=== PATIENT | male | born 1945 | race Caucasian/White ===

== ENCOUNTER 2019-04-09 22:46 | Observation (INO) ==
[2019-04-10] MEDS ORDERED: 0.9 % Sodium Chloride 1,000 ML IVC SCH (01:00)
[2019-04-10] MEDS ORDERED: Ondansetron 4 MG/2 ML VIAL IVP PRN ×2 (04:00→11:06)
[2019-04-10 06:46] LABS: Basophils # 0.1 K/mcL (0.0-0.2); Basophils % 0.3 %; Eosinophils % 0.1 %; Hematocrit 37.8 % (37.5-50.1); Immature Granulocytes % 0.3 % (0-4); Lymphocytes # 2.5 K/mcL (0.6-4.6); Lymphocytes % 13.2 %; Mean Corpuscular HGB Conc 31.7 g/dL (31.6-35.5); Mean Corpuscular Hemoglobin 28.6 pg (28.0-33.3); Mean Corpuscular Volume 90.2 fL (83.0-100.0); Mean Platelet Volume 10.8 fL (9.4-12.4); Monocytes # 0.8 K/mcL (0.0-1.3); Monocytes % 4.2 %; Neutrophils # 15.6 K/mcL (1.6-8.9); Platelet Count 309 K/mcL (140-400); Red Blood Count 4.19 M/mcL (4.19-5.50); Red Cell Distribution Width 14.7 % (11.5-14.5); Segmented Neutrophils % 81.9 %
[2019-04-10 07:06] LABS: Alanine Aminotransferase 17 Units/L (7-52); Albumin 3.7 g/dL (3.5-5.7); Albumin/Globulin Ratio 1.7 (1.1-2.2); Alkaline Phosphatase 79 Units/L (34-104); Amylase 38 Units/L (29-103); Aspartate Amino Transferase 35 Units/L (13-39); BUN/Creatinine Ratio 18 (6-26); Bilirubin,Direct 0.3 mg/dL (0.0-0.2); Bilirubin,Indirect 0.5 mg/dL (0.0-1.2); Bilirubin,Total 0.8 mg/dL (0.3-1.0); Blood Urea Nitrogen 23 mg/dL (8-23); Calcium 8.3 mg/dL (8.6-10.3); Carbon Dioxide 25 mEq/L (23-29); Chloride 108 mEq/L (98-107); Globulin 2.2 g/dL (2.4-3.5); Glucose 136 mg/dL (70-105); Lipase 79 Units/L (11-82); Osmolality,Calculated 296 (280-300); Potassium 4.8 mEq/L (3.5-5.1); Sodium 140 mEq/L (136-145); Total Protein 5.9 g/dL (6.4-8.9); eGFR For African Americans > 60 (> 60); eGFR For Non-African Americans 55 (> 60)
--- NOTE | 2019-04-10 07:12 | Anesthesia Evaluation PreOp ---
Date of Encounter: 04/10/19 Time of Encounter: 08:42 - Past History Planned Operation: Laparoscopic Cholecystectomy Cardiac History: Hyperlipidemia Pulmonary History: Former smoker (quit 40 years ago) [employer] History: Denies Any Significant HX Other Medical History: Thyroid, Other (H/O prostate CA S/P prostatectomy) Anesthesia History: No Prior Anesthetic Complications, Past Anesthesia Alcohol Use: none Drug use: none Medications and Allergies Aspirin [Lo-Dose Aspirin EC] PO DAILY 04/10/19 [History] Oxybutynin 04/10/19 [History] Synthroid 04/10/19 [History] Allergy/AdvReac Type Severity Reaction Status Date / Time No Known Allergies Allergy Verified 04/10/19 00:30 - Meds/Allergy Pre-op Review Medications Reviewed: Yes Allergies Reviewed: Yes Beta Blockers on Current Med List: No Anesthesia Results - Labs 04/10/19 06:28 04/10/19 06:28 - Imaging EKG: report reviewed (04/09/2019 sinus rhythm, borderline LAD, abnormal R-wave progression, early transition, minimal ST depression anterolateral leads) Anesthesia Exam Vital Signs/O2 Sat/Glucose, Most Recent Temp Pulse Resp BP Pulse Ox 98.8 F 86 17 144/71 97 04/10/19 06:34 04/10/19 06:34 04/10/19 06:34 04/10/19 06:34 04/10/19 06:34 Blood Glucose* 119 Height: 5'9''/1.75m Weight: 174 lbs/79.2 kg NPO (# of Hours): 8 Pain Scale: 0 Pain Scale Used: Numeric (1 - 10) - HEENT Pupil (Motor): EOMI Mallampati: III Teeth: Normal, Missing Denture Type: Upper: Partial, Lower: Partial Oral Opening: Greater than 3 - [employer] LOC: Oriented [employer] Motor: Normal RUE, Normal LUE, Normal RLE, Normal LLE, Normal Face [employer] Sensory: Normal: RUE, LUE, RLE, LLE, Face - Cardiac Rhythm: Regular Murmur: None - Pulmonary Breath Sounds: bilateral Clear Respiratory Effort: Symmetrical Anesthesia Assess/Plan ASA Score: 2 Level of consciousness: Cooperative, Oriented, Tranquil Anesthetic Plan: General Monitoring Plan: Standard Monitors Recovery Plan: PACU
[2019-04-10] MEDS ORDERED: cefOXitin 1,000 MG, Sodium Chloride IRRigation 1,000 ML IR ONE (07:40)
[2019-04-10] MEDS ORDERED: cefOXitin 1,000 MG, 0.9 % Sodium Chloride 1,000 ML IR ONE (07:40)
--- NOTE | 2019-04-10 07:48 | Acute Care Surgery H&P ---
Date of Encounter: 04/10/19 Time of Encounter: 07:20 Assessment and Plan (1) Acute cholecystitis with chronic cholecystitis Current Visit: Yes Status: Acute The assessment and plan as outlined above was discussed with the patient and/or family members who expressed understanding and agreement. All questions were answered. The patient has acute on chronic cholecystitis. He now presents with leukocytosis and persistent right upper quadrant pain. He has been treated with one dose of preoperative antibiotic we will plan to go to the operating room for laparoscopic cholecystectomy, cholangiogram. I discussed the risks and benefits with the patient including bleeding, infection, common bile duct injury, postoperative bile leak, and open conversion. He understands and wishes to proceed. Jerrod Goel MD FACS History of Present Illness Chief complaint: Abdominal pain HPI: Mr. Burton is a 74 year old male Who had a one-day episode of abdominal pain. This started a central abdominal discomfort associated with nausea and localized to the right upper quadrant. The patient sought evaluation at the [facility] last week for central abdominal pain. An ultrasound demonstrated a thickened gallbladder wall and gallbladder sludge. A follow-up HIDA scan was ordered. The HIDA scan demonstrated a gallbladder ejection fraction of 15% with very slow filling of the gallbladder at over an hour. After the HIDA scan the patient developed acute right upper quadrant pain associated with nausea. He sought evaluation in the emergency room and now presents for treatment of acute cholecystitis. He denies shakes chills or fever. He does have nausea but no vomiting. There are no episodes of jaundice. Past Med Surg Social Fam HX - Past Medical History Medical history: arthritis, thyroid disease, other Additional medical history: H/O bladder CA Psychiatric history: no psych history - Past Surgical History Surgical History: prostatectomy Additional surgical history: left knee replacement and rotator cuff repair left shoulder - Social History Smoking Status: Never smoker Smokeless Tobacco Status: No Alcohol use: none Drug use: none Medications and Allergies Aspirin [Lo-Dose Aspirin EC] PO DAILY 04/10/19 [History] Oxybutynin 04/10/19 [History] Synthroid 04/10/19 [History] Allergy/AdvReac Type Severity Reaction Status Date / Time No Known Allergies Allergy Verified 04/10/19 00:30 Review of Systems All systems PM: The remainder of the systems were reviewed and are negative Exercise tolerance is superior. The patient has no chest pain and excellent pulmonary function despite smoking General Surgery Exam Initial Vital Signs Temp Pulse Resp BP Pulse Ox 100.0 F H 98 16 154/86 96 04/10/19 00:05 04/10/19 00:05 04/10/19 00:05 04/10/19 00:05 04/10/19 00:05 - General physical appearance well developed, well nourished, no distress - Neck no masses, no bruits, trachea midline, no lymphadectomy - Respiratory normal expansion, normal respiratory effort, clear to percussion, clear to auscultation - Cardiovascular Cardiovascular exam: Present: RRR, no murmurs/rubs/gallops - Abdomen Abdomen general surgery: Present: bowel sounds present, tender (Positive White sign) Abdominal Tenderness: Present: RUQ - Integumentary Integumentary general surgery: Present: warm and dry, no abnormal pigmentation, other (No evidence of jaundice) - Neurologic Present: CN 2-12 grossly intact, normal coordination, normal sensation - Psychiatric Psychiatric general surgery: Present: appropriate, oriented to person, oriented to place, oriented to time, speech is normal, memory intact Results - Labs 04/10/19 06:28 04/10/19 06:28 Abnormal lab results WBC 19.0 K/mcL (4.3-11.1) H 04/10/19 06:28 Hgb 12.0 g/dL (12.9-16.9) L 04/10/19 06:28 RDW 14.7 % (11.5-14.5) H 04/10/19 06:28 15.6 K/mcL (1.6-8.9) H 04/10/19 06:28 Chloride 108 mEq/L (98-107) H 04/10/19 06:28 Est GFR (Non-Af Amer) 55 (> 60) L 04/10/19 06:28 Glucose 136 mg/dL (70-105) H 04/10/19 06:28 POC Glucose 119 mg/dL (70-99) H 04/10/19 05:32 Calcium 8.3 mg/dL (8.6-10.3) L 04/10/19 06:28 0.3 mg/dL (0.0-0.2) H 04/10/19 06:28 5.9 g/dL (6.4-8.9) L 04/10/19 06:28 2.2 g/dL (2.4-3.5) L 04/10/19 06:28 Diabetes panel 04/10/19 Range/Units 06:28 Sodium 140 (136-145) mEq/L Potassium 4.8 (3.5-5.1) mEq/L Chloride 108 H (98-107) mEq/L Carbon Dioxide 25 (23-29) mEq/L BUN 23 (8-23) mg/dL Creatinine 1.27 (0.70-1.30) mg/dL Glucose 136 H (70-105) mg/dL Calcium 8.3 L (8.6-10.3) mg/dL AST 35 (13-39) Units/L ALT 17 (7-52) Units/L Alkaline Phosphatase 79 (34-104) Units/L Albumin 3.7 (3.5-5.7) g/dL Calcium panel 04/10/19 Range/Units 06:28 Calcium 8.3 L (8.6-10.3) mg/dL Albumin 3.7 (3.5-5.7) g/dL Pituitary panel 04/10/19 Range/Units 06:28 Sodium 140 (136-145) mEq/L Potassium 4.8 (3.5-5.1) mEq/L Chloride 108 H (98-107) mEq/L Carbon Dioxide 25 (23-29) mEq/L BUN 23 (8-23) mg/dL Creatinine 1.27 (0.70-1.30) mg/dL Glucose 136 H (70-105) mg/dL Calcium 8.3 L (8.6-10.3) mg/dL Adrenal panel 04/10/19 Range/Units 06:28 Sodium 140 (136-145) mEq/L Potassium 4.8 (3.5-5.1) mEq/L Chloride 108 H (98-107) mEq/L Carbon Dioxide 25 (23-29) mEq/L BUN 23 (8-23) mg/dL Creatinine 1.27 (0.70-1.30) mg/dL Glucose 136 H (70-105) mg/dL Calcium 8.3 L (8.6-10.3) mg/dL Total Bilirubin 0.8 (0.3-1.0) mg/dL AST 35 (13-39) Units/L ALT 17 (7-52) Units/L Alkaline Phosphatase 79 (34-104) Units/L Albumin 3.7 (3.5-5.7) g/dL All other labs normal. - Imaging Additional studies: Studies were unavailable to review the original films. [facility]
[2019-04-10] MEDS ORDERED: cefOXitin 2,000 MG in Water for inj. (sterile) 20 ML IVP SCH (08:00)
[2019-04-10] MEDS ORDERED: *HR* Propofol 200 MG/20 ML VIAL IVP ONE (08:14)
[2019-04-10] MEDS ORDERED: Lidocaine -MPF 2% 2 ML VIAL ONE (08:14)
[2019-04-10] MEDS ORDERED: *HR* Rocuronium Bromide 50 MG/5 ML VIAL ONE (08:14)
[2019-04-10] MEDS ORDERED: Ondansetron 4 MG/2 ML VIAL ONE (08:14)
[2019-04-10] MEDS ORDERED: *HR* FentaNYL (PF) 100 MCG/2 ML VIAL ONE (08:14)
[2019-04-10] MEDS ORDERED: Dexamethasone 4 MG/ML VIAL ONE (08:15)
[2019-04-10] MEDS ORDERED: Lidocaine -MPF 4% 5 ML AMPUL ONE (08:17)
[2019-04-10] MEDS ORDERED: *HR* HYDROmorphone (PF) 1 MG/ML SYRINGE IVP PRN (08:59)
[2019-04-10] MEDS ORDERED: Isovue-300 50 ML VIAL ONE (09:06)
[2019-04-10] MEDS ORDERED: Acetaminophen IV 1,000 MG/100 ML INFUS..BTL ONE (09:16)
[2019-04-10] MEDS ORDERED: *HR* PHENYLEPHRINE 1,000 MCG/10 ML SYRINGE IVP ONE ×2 (09:25→09:40)
--- NOTE | 2019-04-10 10:23 | Operative Note ---
Date of procedure: 04/10/19 Pre-op diagnosis: Acute cholecystitis Post-op diagnosis: other (Acute cholecystitis and full gallbladder perforation) Procedure: Laparoscopic cholecystectomy, cholangiogram Anesthesia: KINZA Surgeon: Jerrod Goel Was there an radiology practitioner assistant present: No Estimated blood loss (cc): 25 Specimen: Gallbladder and contents Condition: stable Disposition: PACU Procedure in Detail: Laparoscopic cholecystectomy and intraoperative cholangiogram Operative procedure: after informed consent and appropriate patient identification, the patient was taken to the major operating suite and placed supine position and given adequate general endotracheal anesthesia. The abdomen was prepped and draped in sterile fashion utilizing ChloraPrep standard draping techniques. Timeout was taken and the patient was identified. I made a vertical midline incision below the umbilicus and dissected down to level of fascia. I placed 2 traction stitches of 0 vicryl in the midline fascia and the abdominal cavity was entered visually. There was free bile in the abdominal cavity at time of entry A Koenig trocar was placed in the abdomen and the abdomen was insufflated to 15 mmHg pressure CO2. The entire right gutter was completely full of free bile and there was a good deal of peritoneal inflammation and hyperemia. The gallbladder was fully perforated and decompressed spontaneously. The gallbladder was visualized. I placemed an 11 port in the subxiphoid area and two 5 mm ports in the subcostal area. The gallbladder was grasped and elevated. There were acute and chronic inflammatory changes on the gallbladder these were lysed with electrocautery A variety of blunt and sharp dissection techniques were used to isolate the cystic duct and cystic artery. The cystic artery was controlled with 2 surgical clips proximally and one distally and it was divided. I placed a surgical clip on the neck the gallbladder and obtained an intraoperative cholangiogram using 10 mL of Isovue. Intraoperative cholangiogram was normal. The cholangiocatheter was removed and the cystic duct was controlled with 2 surgical clips proximally and was divided. The gallbladder was removed from the gallbladder fossae using electrocautery. The gallbladder was removed from the abdomen through the #11 port site. I replaced the #11 port and irrigated with copious amounts of antibiotic containing solution. All bile was irrigated from the pelvis and right gutter. There was no evidence of bleeding or bile leak. I placed a #10 Hakeem-Gerardo drain in this was sutured in place with silk All trochars were removed. Fascia was closed with 0 Vicryl and the skin with 2-0 and 4-0 Vicry. He tolerated the procedure well and was transferred to recovery in stable condition
--- NOTE | 2019-04-10 10:57 | Anesthesia Evaluation Post Op ---
Date of Encounter: 04/10/19 Time of Encounter: 10:56 - Vital Signs Vital Signs: Vital Signs/O2 Sat, Most Current Temp Pulse Resp BP Pulse Ox 99.4 F 81 16 151/84 98 04/10/19 10:54 04/10/19 10:54 04/10/19 10:54 04/10/19 10:54 04/10/19 10:54 - Lungs Lungs: Clear Ascult./Percussion - Airway Airway: Non-obstructed - Cardiovascular Regular Rate - Mental Status Mental Status: Alert & Oriented, Answers Appropriately - Pain Pain Scale: 0 Pain Scale used: Numeric (1 - 10) - Nausea Vomiting Nausea Vomiting: Not Present - Hydration Hydration: Ice chips, Has not voided - Discharge PostOp Status: Transfer Patient to floor
[2019-04-10] MEDS ORDERED: *HR* OxyCODONE/APAP 5/325 TABLET PO PRN (11:06)
[2019-04-10] MEDS: cefOXitin 2,000 MG in Water for inj. (sterile) 20 ML IVP SCH (15:43)
[2019-04-10] MEDS: 0.9 % Sodium Chloride 1,000 ML IVC SCH (17:34)
[2019-04-10] MEDS ORDERED: Acetaminophen 325 MG TABLET PO PRN (21:28)
[2019-04-11] MEDS: cefOXitin 2,000 MG in Water for inj. (sterile) 20 ML IVP SCH ×2 (02:15→08:22)
[2019-04-11] MEDS: 0.9 % Sodium Chloride 1,000 ML IVC SCH (05:30)
[2019-04-11 06:19] VITALS: BP 148/80
--- NOTE | 2019-04-11 07:47 | Discharge Summary ---
<Sarah Villegas - Last Filed: 04/11/19 08:35> - NOTES TO OUTPATIENT PROVIDER Notes to Outpatient Provider: Patient underwent laparoscopic cholecystectomy on 04/10/19. Medications include Cipro, Flagyl for 5 days, Percocet for pain control for 5 days, Colace. Patient is being discharged with a MITCH drain in place. Patient to follow-up with acute care surgery service in 2 weeks. Orders not resulted at time of discharge: Pending orders 04/10/19 09:56 Surgical Pathology [PTH] Routine 04/11/19 06:34 CBC [Complete Blood Count] [HEME] Routine 04/12/19 04:00 BMP [Basic Metabolic Panel] AM 0400 Date of Encounter: 04/11/19 Time of Encounter: 07:47 - Discharge Diagnosis (1) Acute cholecystitis with chronic cholecystitis Priority: Primary Status: Acute General Surgery Exam Initial Vital Signs Temp Pulse Resp BP Pulse Ox 100.0 F H 98 16 154/86 96 04/10/19 00:05 04/10/19 00:05 04/10/19 00:05 04/10/19 00:05 04/10/19 00:05 - General physical appearance well developed, well nourished, no distress - Eyes PERRL, normal ocular movement. negative: icteric - ENT normal mucosa, no congestion - Neck trachea midline, no venous distension - Respiratory normal expansion, normal respiratory effort, clear to auscultation - Cardiovascular Cardiovascular exam: Present: RRR, no murmurs/rubs/gallops. Absent: JVD - Abdomen Abdomen general surgery: Present: bowel sounds present, soft, tender. Absent: distended, guarding, rebound Abdominal Tenderness: Present: RUQ - Incision Incision: Present: clean and dry (MITCH drain in place, without 20 mL serosanguineous fluid in bulb.), intact. Absent: erythema - Integumentary Integumentary general surgery: Present: warm and dry, no abnormal pigmentation - Neurologic Present: CN 2-12 grossly intact, normal coordination, normal sensation - Musculoskeletal Present: normal gait, normal posture - Psychiatric Psychiatric general surgery: Present: appropriate, oriented to person, oriented to place, oriented to time, speech is normal, memory intact - Hospital Course Hospital course: Mr. Burton is a 74 year old male who presented with chief complaint of right upper quadrant abdominal pain from the [place]. He has a past medical history of arthritis, thyroid disease, and history of bladder cancer. [facility] which demonstrated a thickened gallbladder wall and gallbladder sludge, a follow-up HIDA scan was ordered which revealed a gallbladder ejection fraction of 15% with very slow filling of the gallbladder over an hour. After the HIDA scan the patient developed acute right upper quadrant pain with nausea and presented to the emergency department for treatment of his acute cholecystitis. The patient was afebrile on presentation with leukocytosis at 19.0. He was started on Mefoxin IV for antibiotic coverage. He underwent a laparoscopic cholecystectomy with intraoperative cholangiogram on 04/10/19. There was free bile in the abdominal cavity at the time of surgical entry, the gallbladder was fully perforated. A MITCH drain was placed. The cholangiogram revealed no evidence of a leak or retained common bile duct stone. He tolerated the procedure well. Patient tolerating diet well, passing flatus. He is given MITCH drain education. Vital signs are stable and the patient as well for discharge to home with follow-up in 2 weeks with the acute care surgical service. He will continue 5 days of ciprofloxacin and metronidazole, 5 days of Percocet for pain and Colace. - Time Spent with Patient Total time spent providing and/or coordinating discharge services: - Discharge Medications Prescriptions: New Ciprofloxacin [Cipro] 500 mg PO BID #10 tablet Docusate [Colace] 100 mg PO DAILY 15 Days #15 capsule metroNIDAZOLE [Flagyl] 500 mg PO TID 5 Days #15 tablet Oxycodone HCl/Acetaminophen [Percocet 5-325 mg Tablet] 1 each PO Q6HR 5 Days #20 tablet Continued Aspirin [Lo-Dose Aspirin EC] PO DAILY Oxybutynin Synthroid Home Medications: Aspirin [Lo-Dose Aspirin EC] PO DAILY 04/10/19 [History] Oxybutynin 04/10/19 [History] Synthroid 04/10/19 [History] Ciprofloxacin [Cipro] 500 mg PO BID #10 tablet 04/11/19 [Rx] Docusate [Colace] 100 mg PO DAILY 15 Days #15 capsule 04/11/19 [Rx] Oxycodone HCl/Acetaminophen [Percocet 5-325 mg Tablet] 1 each PO Q6HR 5 Days #20 tablet 04/11/19 [Rx] metroNIDAZOLE [Flagyl] 500 mg PO TID 5 Days #15 tablet 04/11/19 [Rx] Allergies/Adverse Reactions: Allergy/AdvReac Type Severity Reaction Status Date / Time No Known Allergies Allergy Verified 04/10/19 00:30 Date of admission: 04/09/19 23:49 Primary care physician: PCP NONE Discharging clinician: Sarah Villegas Anticipated date of discharge: 04/11/19 - Impressions ITS Impressions Cholangiogram,Operative 04/10/19 00:00 IMPRESSION: 1. No evidence of a leak or retained common bile duct stone. 2. Refer to surgical report. D/ / 04/10/2019 10:47:23 Arturo Lemons MD / dilcia Interpreting Provider: Arturo Lemons MD - Patient Status Disposition: Home, Self-Care Condition: Good Functional capacity at discharge: independent ambulation Overall status at discharge: patient is progressing back to baseline - Discharge Instructions Instructions: Cholecystitis (GEN), Hakeem-Gerardo Drain Care (GEN), Laparoscopic Cholecystectomy (DC) Follow Up With: Jerrod Goel MD [Partnered Physician] - (Web request sent,please call patient) Sarah Villegas MD [Resident] - Additional Instructions: General Surgical Discharge Instructions 1. No pushing, pulling, or lifting greater than 15 lbs for 2-4 weeks (depending upon procedure). 2. You may shower beginning today, but no tub baths, soaking, or swimming for 2 weeks. 3. You may resume driving when you are off narcotics and are safe to react in a car. 4. Take ibuprofen every 8 hours for discomfort. If this does not relieve discomfort, you may take the as needed Percocet. Take narcotics as directed. Do not take more narcotics then directed and do not share your narcotics with any other person. Do not drink alcohol while on narcotics. 5. Take stool softeners (Colace) or a water based laxative (Miralax) while taking narcotics. You may hold for loose stools. 6. Report any fevers greater than 100.5F, increase abdominal discomfort, drainage that looks like pus, increased redness or pain at the surgical site, or any vomiting. 7. Report any pain in the calves, shortness of breath, or rapid heartbeat. 8. Follow-up in the office as directed. 9. If you were prescribed antibiotics, do not stop them without talking to your provider. Daily MITCH drain care: Remove drain sponge. Shower/wash with antibacterial soap. Replace drain sponge. Cover with a dry dressing. Tape to secure. Do not let the MITCH drain dangle from the body. Secure the bulb to clothing with a safety pin or suspend from a lanyard when showering. - Diet and Activity Activity: resume usual activities as tolerated Diet: advance to your usual diet <Jerrod Goel - Last Filed: 04/11/19 11:22> Orders not resulted at time of discharge: Pending orders 04/10/19 09:56 Surgical Pathology [PTH] Routine Date of Encounter: 04/11/19 - Discharge Diagnosis (1) Acute cholecystitis with chronic cholecystitis Status: Acute General Surgery Exam Initial Vital Signs Temp Pulse Resp BP Pulse Ox 100.0 F H 98 16 154/86 96 04/10/19 00:05 04/10/19 00:05 04/10/19 00:05 04/10/19 00:05 04/10/19 00:05 - Hospital Course Hospital course: Mr. Burton is a 74 year old male - Time Spent with Patient Total time spent providing and/or coordinating discharge services: Date of admission: 04/09/19 23:49 Primary care physician: PCP NONE Labs on day of discharge: Labs from last 24 hours 04/11/19 09:05 WBC 20.1 H RBC 4.00 L Hgb 11.2 L Hct 36.6 L MCV 91.5 MCH 28.0 MCHC 30.6 L RDW 14.7 H Plt Count 303 MPV 11.2 Immature Gran % 0.5 Seg Neutrophils % 73.4 Lymphocytes % 21.9 Monocytes % 2.5 Eosinophils % 1.4 Basophils % 0.3 Neutrophils # 14.7 H Lymphocytes # 4.4 Monocytes # 0.5 Eosinophils # 0.3 Basophils # 0.1 - Impressions ITS Impressions Cholangiogram,Operative 04/10/19 00:00 IMPRESSION: 1. No evidence of a leak or retained common bile duct stone. 2. Refer to surgical report. D/ / 04/10/2019 10:47:23 Arturo Lemons MD / [facility] Interpreting Provider: Arturo Lemons MD - Attending Attestation I examined this patient and my medical decision-making was reviewed with the Resident Physician. I agree with the documented findings, disposition and treatment plan as described except to the extent set forth below. The patient is seen and evaluated on morning rounds with the acute care surgery team and the resident. He is completely pain-free. He is afebrile. I think it is reasonable to discharge him home on 5 days of antibiotic and outpatient pain control. Follow-up acute care surgery clinic. Condition much improved. Jerrod Goel MD FACS
[2019-04-11 09:29] LABS: Basophils # 0.1 K/mcL (0.0-0.2); Basophils % 0.3 %; Eosinophils # 0.3 K/mcL (0.0-0.6); Eosinophils % 1.4 %; Hematocrit 36.6 % (37.5-50.1); Hemoglobin 11.2 g/dL (12.9-16.9); Immature Granulocytes % 0.5 % (0-4); Lymphocytes # 4.4 K/mcL (0.6-4.6); Lymphocytes % 21.9 %; Mean Corpuscular HGB Conc 30.6 g/dL (31.6-35.5); Mean Corpuscular Volume 91.5 fL (83.0-100.0); Mean Platelet Volume 11.2 fL (9.4-12.4); Monocytes # 0.5 K/mcL (0.0-1.3); Monocytes % 2.5 %; Neutrophils # 14.7 K/mcL (1.6-8.9); Platelet Count 303 K/mcL (140-400); Red Cell Distribution Width 14.7 % (11.5-14.5); Segmented Neutrophils % 73.4 %; White Blood Count 20.1 K/mcL (4.3-11.1)
== END 2019-04-11 09:19 | disposition home or self-care (01) ==
LOC: 3ANU
PROVIDERS: ADMIT Surgery; ATTEND Surgery

== ENCOUNTER 2019-07-06 12:16 | Inpatient (IN) ==
[2019-07-06] MEDS ORDERED: 0.9 % Sodium Chloride 1,000 ML IVC ONE (12:42)
[2019-07-06 13:03] LABS: Basophils # 0.1 K/mcL (0.0-0.2); Basophils % 0.5 %; Eosinophils % 0.2 %; Hemoglobin 13.8 g/dL (12.9-16.9); Immature Granulocytes % 0.3 % (0-4); Lymphocytes # 3.3 K/mcL (0.6-4.6); Lymphocytes % 20.2 %; Mean Corpuscular HGB Conc 32.1 g/dL (31.6-35.5); Mean Corpuscular Hemoglobin 28.5 pg (28.0-33.3); Mean Corpuscular Volume 88.7 fL (83.0-100.0); Mean Platelet Volume 10.5 fL (9.4-12.4); Monocytes # 0.9 K/mcL (0.0-1.3); Monocytes % 5.2 %; Neutrophils # 12.1 K/mcL (1.6-8.9); Platelet Count 305 K/mcL (140-400); Red Blood Count 4.85 M/mcL (4.19-5.50); Red Cell Distribution Width 14.6 % (11.5-14.5); Segmented Neutrophils % 73.6 %; White Blood Count 16.5 K/mcL (4.3-11.1)
[2019-07-06] MEDS ORDERED: Ondansetron 4 MG/2 ML VIAL IVP ONE (13:18)
[2019-07-06] MEDS ORDERED: *HR* FentaNYL (PF) 100 MCG/2 ML VIAL IVP ONE (13:18)
[2019-07-06 13:22] LABS: Alanine Aminotransferase 15 Units/L (7-52); Albumin 4.4 g/dL (3.5-5.7); Albumin/Globulin Ratio 1.7 (1.1-2.2); Alkaline Phosphatase 81 Units/L (34-104); Aspartate Amino Transferase 17 Units/L (13-39); BUN/Creatinine Ratio 32 (6-26); Bilirubin,Direct 0.1 mg/dL (0.0-0.2); Bilirubin,Indirect 0.5 mg/dL (0.0-1.2); Bilirubin,Total 0.6 mg/dL (0.3-1.0); Blood Urea Nitrogen 28 mg/dL (8-23); Calcium 9.5 mg/dL (8.6-10.3); Carbon Dioxide 25 mEq/L (23-29); Chloride 103 mEq/L (98-107); Globulin 2.6 g/dL (2.4-3.5); Glucose 123 mg/dL (70-105); Lipase 13 Units/L (11-82); Osmolality,Calculated 289 (280-300); Potassium 4.3 mEq/L (3.5-5.1); Sodium 136 mEq/L (136-145); eGFR For African Americans > 60 (> 60); eGFR For Non-African Americans > 60 (> 60)
--- NOTE | 2019-07-06 13:34 | Emergency Department Note ---
Disposition Clinical Impression: Small bowel obstruction Disposition: Admitted As Inpatient Condition: Good Time of Disposition: 14:31 General Adult HPI - General Chief complaint: ED Abdominal Pain Stated complaint: bowel blockage Time Seen by Provider: 07/06/19 12:42 Source: patient, family Mode of arrival: ambulatory Limitations: no limitations Nursing Notes Reviewed: Yes Vital Signs Reviewed: Yes - History of Present Illness HPI Narrative: 74-year-old male with significant past medical history of prostate cancer with subsequent bladder stimulator presenting to the emergency department chief complaint of "bowel obstruction". Patient states that he had a cholecystectomy at the end of March this year and has since had intermittent abdominal pain. Had a CT of the abdomen and pelvis completed shortly after his cholecystectomy that just showed a collection of fluid but otherwise no acute abnormalities. Patient continued to have some abdominal pain CU scheduled for an outpatient CT of the abdomen and pelvis today. Starting 2 days ago he noticed his abdomen is more distended than normal and has had some nausea. He has been able to have very small movements and denies any vomiting. Denies any chest pain, shortness of breath or fevers. He went to the [facility] today to have the CT with IV and oral contrast that showed a small bowel obstruction. He was sent here for further evaluation. Pain Scale: 7 - Related Data Home Medications Medication Instructions Recorded Confirmed Aspirin [Lo-Dose Aspirin EC] 1 tab PO DAILY 04/10/19 07/06/19 Diclofenac Sodium [Voltaren] 75 mg PO BID PRN 07/06/19 07/06/19 Gemfibrozil [Lopid] 600 mg PO BIDWM 07/06/19 07/06/19 Levothyroxine [Synthroid] 100 mcg PO 0630 07/06/19 07/06/19 Oxybutynin [Ditropan] 5 mg PO BID 07/06/19 07/06/19 Allergies Allergy/AdvReac Type Severity Reaction Status Date / Time No Known Allergies Allergy Verified 04/10/19 00:30 All systems ED: reviewed and negative except as stated. Constitutional: Denies: fever Eyes: Reports: as per HPI ENT ED: Reports: as per HPI Cardiovascular: Denies: chest pain Respiratory: Denies: dyspnea Gastrointestinal: Reports: abdominal pain, nausea. Denies: vomiting Genitourinary: Reports: as per HPI Musculoskeletal: Reports: as per HPI Integumentary: Reports: as per HPI Neurological: Reports: as per HPI Psychiatric: Reports: as per HPI Endocrine: Reports: as per HPI Hematological/Lymphatic: Reports: as per HPI Allergic/Immunologic: Reports: as per HPI Past Medical History - Past Medical History Attestation: Yes The following information was validated with the patient. Medical history: Reports: arthritis, thyroid disease, other Surgical history: Reports: prostatectomy Psychiatric history: Reports: no psych history - Social History Smoking Status: Never smoker Smokeless Tobacco Status: No Alcohol use: Reports: none Drug use: Reports: none Physical Exam - General Limitations: no limitations General appearance: alert, in no apparent distress - Head Head exam: atraumatic, normocephalic, normal inspection - Eye Eye exam: Absent: scleral icterus - ENT ENT exam: mucous membranes moist - Neck Neck exam: Present: full ROM - Chest Chest inspection: Present: symmetric chest wall rise - Respiratory Respiratory exam: Present: normal lung sounds bilaterally. Absent: respiratory distress, wheezes - Cardiovascular Cardiovascular exam: Present: regular rate, normal rhythm, normal heart sounds - Abdominal Exam Abdominal exam: Present: tenderness, distention. Absent: guarding, rebound, rigidity Abdominal tenderness: Present: diffuse, mild - Extremities Exam Extremities exam: Present: full ROM - Neurological Exam Neurological exam: Present: alert, oriented X3 - Psychiatric Psychiatric exam: Present: normal affect - Skin Skin exam: Present: warm Course Course Narrative: 74-year-old male presenting with small bowel obstruction. Patient states for the past 2 days he has had worsening abdominal distention and nausea. Denies any vomiting. In the room he is alert and oriented [address] able. Triage labs completed including CBC, CMP and lipase. Impression of CT completed at [facility] was obtained and shows a distal small bowel obstruction at the level of the terminal ileum. There is a small amount of pelvic free fluid. Otherwise no new acute abnormalities. Labs show mild leukocytosis but otherwise within normal limits. Patient given Zofran and fentanyl. At this time will contact on-call surgery for further treatment and admission. Patient agrees with this plan. - Reevaluation(s) Reevaluation #1: I spoke with the surgeon on-call Dr. Hamlin who agrees to see the patient in consultation. She recommends admission to medicine for further treatment of the patient's small bowel obstruction. I spoke with Dr. Dale who agrees to acc ept the patient at this time. Patient remains alert and oriented 3 and hemodynamically stable. No vomiting. Vital Signs Temperature 97.5 F L 07/06/19 12:18 Pulse Rate 92 07/06/19 12:18 Respiratory Rate 16 07/06/19 12:18 Blood Pressure 153/91 07/06/19 12:18 O2 Sat by Pulse Oximetry 98 07/06/19 12:18 Temperature 97.5 F L 07/06/19 12:57 Pulse Rate 92 07/06/19 12:57 Respiratory Rate 16 07/06/19 12:57 Blood Pressure 153/91 07/06/19 12:57 O2 Sat by Pulse Oximetry 98 07/06/19 12:57 Oxygen Delivery Oxygen Delivery Room Air Medical Decision Making - Lab Data Result diagrams: 07/06/19 12:43 07/06/19 12:43 Lab Results 07/06/19 07/06/19 07/06/19 Range/Units 12:43 12:43 12:51 WBC 16.5 H (4.3-11.1) K/mcL RBC 4.85 (4.19-5.50) M/mcL Hgb 13.8 (12.9-16.9) g/dL Hct 43.0 (37.5-50.1) % MCV 88.7 (83.0-100.0) fL MCH 28.5 (28.0-33.3) pg MCHC 32.1 (31.6-35.5) g/dL RDW 14.6 H (11.5-14.5) % Plt Count 305 (140-400) K/mcL MPV 10.5 (9.4-12.4) fL Immature Gran % 0.3 (0-4) % Seg Neutrophils % 73.6 % Lymphocytes % 20.2 % Monocytes % 5.2 % Eosinophils % 0.2 % Basophils % 0.5 % Neutrophils # 12.1 H (1.6-8.9) K/mcL Lymphocytes # 3.3 (0.6-4.6) K/mcL Monocytes # 0.9 (0.0-1.3) K/mcL Eosinophils # 0.0 (0.0-0.6) K/mcL Basophils # 0.1 (0.0-0.2) K/mcL Sodium 136 (136-145) mEq/L Potassium 4.3 (3.5-5.1) mEq/L Chloride 103 (98-107) mEq/L Carbon Dioxide 25 (23-29) mEq/L BUN 28 H (8-23) mg/dL Creatinine 0.88 (0.70-1.30) mg/dL Est GFR ( Amer) > 60 (> 60) Est GFR (Non-Af Amer) > 60 (> 60) BUN/Creatinine Ratio 32 H (6-26) Glucose 123 H (70-105) mg/dL Calculated Osmolality 289 (280-300) Lactic Acid 0.6 (0.5-2.2) mmol/L Calcium 9.5 (8.6-10.3) mg/dL Total Bilirubin 0.6 (0.3-1.0) mg/dL Direct Bilirubin 0.1 (0.0-0.2) mg/dL Indirect Bilirubin 0.5 (0.0-1.2) mg/dL AST 17 (13-39) Units/L ALT 15 (7-52) Units/L Alkaline Phosphatase 81 (34-104) Units/L Serum Total Protein 7.0 (6.4-8.9) g/dL Albumin 4.4 (3.5-5.7) g/dL Globulin 2.6 (2.4-3.5) g/dL Albumin/Globulin Ratio 1.7 (1.1-2.2) Lipase 13 (11-82) Units/L Attestation Statement - Attestation Attestation: I examined this patient and my medical decision-making was reviewed with the Resident Physician. I agree with the documented findings, disposition and treatment plan as described except to the extent set forth below. Patient does have some generalized abdominal distention, patient has had some mild abdominal pain and examination. No vomiting. The patient was found to have small bowel obstruction and CT from outside facility. The results were obtained, the patient does appear to have small bowel traction. The case was discussed with general surgery as well as hospitalist, patient will be admitted in stable condition at this time.
[2019-07-06 14:29] LABS: Bilirubin,Urine Negative (Negative); Blood,Urine Negative (Negative); Clarity,Urine Clear (Clear); Color,Urine Yellow (Yellow); Glucose,Urine (UA) Normal (Normal); Ketones,Urine 40 mg/dL (Negative); Leukocyte Esterase,Urine Negative (Negative); Nitrite,Urine Negative (Negative); Protein,Urine Trace mg/dL (Neg-Trace); Specific Gravity,Urine > 1.030 (1.010-1.025); Urobilinogen,Urine Normal (Normal)
--- NOTE | 2019-07-06 15:16 | Internal Med History&Physical ---
<David Echevarria S - Last Filed: 07/06/19 16:46> Date of Encounter: 07/06/19 Time of Encounter: 15:16 Internal Medicine - H&P: HPI Admitted From: Home Plans for Post Hospital Care: Home History of present illness: Mr. Burton is a 74 year old male status post cholecystectomy for ruptured gallbladder on April 09, who presents today with abdominal pain and distention. Since his surgery, Mr. Burton states that he has had intermittent abdominal pain, seemingly worse with activity. He got a CT at the [facility] one month ago and showed fluid around the surgical site, and was scheduled for a follow-up CT today. Yesterday, patient passed a small bowel movement, then over the next several hours had onset of increasing pain and bloating. He reports the pain was worse with movement, is reported as a dull achy pain rated 9 out of 10 at its worst, he has not tried anything to make it better, reports it is tender to the touch and worse with movement. The CT scan with oral contrast performed today at the [facility] showed dilated and fluid-filled small bowel loops diffusely throughout the abdomen with semisolid debris in the terminal ileum. Ingested oral contrast remained in stomach one half hours after administration. The patient was called and told that he had a small bowel obstruction, and needed to go to the nearest ED. Upon arrival to the ED, the patient's pain was well-controlled with 50 g of fentanyl, and the admitting team and Gen. surgery were consulted. Patient reports distention and an "upset stomach," but denies nausea or vomiting since onset of pain. He denies passing gas, but reports he has had two small bowel movements since presentation to the ED. He also denies fevers, chills, headache, blurry vision, double vision, trouble swallowing or speaking, chest pain, shortness of breath, recent history of black stools or bloody stools, new onset numbness/tingling/weakness anywhere Patient's past medical history is significant for hypothyroidism, hyperlipidemia, prostate cancer. * He reports recent diagnosis of low iron. He reports that his primary care provider did a stool sample analysis which showed blood in the stool. The patient's last colonoscopy was well over 10 years ago, and he is supposed to call to schedule a colonoscopy in the coming days. Patient's past surgical history significant for prostatectomy, rotator cuff surgery, knee replacement, cholecystectomy as stated above. He denies any tobacco use, alcohol use, drug use Past Med Surg Social Fam HX - Past Medical History Medical history: arthritis, thyroid disease, other Additional medical history: H/O bladder CA Psychiatric history: no psych history - Past Surgical History Surgical History: prostatectomy Additional surgical history: left knee replacement and rotator cuff repair left shoulder - Social History Smoking Status: Never smoker Smokeless Tobacco Status: No Alcohol use: none Drug use: none - Family History Father Living Status: Age at : 85 Cause of : CHF Hx Family Cardiac Disorders: Yes Mother Living Status: Age at : 70 Cause of : Heart attack Internal Medicine - H&P: Meds Aspirin [Lo-Dose Aspirin EC] 1 tab PO DAILY 04/10/19 [History] Diclofenac Sodium [Voltaren] 75 mg PO BID PRN 07/06/19 [History] Gemfibrozil [Lopid] 600 mg PO BIDWM 07/06/19 [History] Levothyroxine [Synthroid] 100 mcg PO 0630 07/06/19 [History] Oxybutynin [Ditropan] 5 mg PO BID 07/06/19 [History] Allergy/AdvReac Type Severity Reaction Status Date / Time No Known Allergies Allergy Verified 04/10/19 00:30 All Systems PM: A 10-system review of systems was performed and is negative for pertinent findings except as documented above in the HPI. Review of systems: As per history of present illness - Constitutional Vitals: Temp Pulse Resp BP Pulse Ox 97.5 F L 73 16 138/96 98 07/06/19 12:57 07/06/19 14:54 07/06/19 14:54 07/06/19 14:54 07/06/19 14:54 Exam: Gen: Awake and alert, no acute distress, well-nourished, well kempt Head: Normocephalic, atraumatic Eyes: EOMI, no scleral icterus ENT: Mucous membranes moist, no oropharyngeal erythema CV: S1-S2 present, regular at a rate of approximately 70, no murmurs rubs or gallops Pulm: CTAB, not tachypneic, no respiratory distress, no increased work of breathing, EXT: Grossly intact motor strength in all 4 extremities, no lower extremity edema, no distal cyanosis or pallor Skin: Warm, dry, intacct, no rashes or lesions noted Neuro: Cranial nerves II-XII grossly intact, no focal neurologic deficits Psych: normal mood and affect, Answers questions with intact judgment, appropriate insight, and linear thought Abd: Tympanic, distended abdomen, mildly tender to palpation, no rebound or guarding. Bowel sounds faint but present-not remarkably high-pitched. No ecchymosis, discoloration, caput medusa, or other visible abnormalities *Of Note, there is a palpable, ill-defined mass near the mid-axillary line at the level of the umbilicus that is notably more tender to palpation than the rest of the abdomen Internal Med - H&P Results - Labs CBC & Chem 7: 07/06/19 12:43 07/06/19 12:43 Labs: Short CBC 07/06/19 Range/Units 12:43 WBC 16.5 H (4.3-11.1) K/mcL Hgb 13.8 (12.9-16.9) g/dL Hct 43.0 (37.5-50.1) % Plt Count 305 (140-400) K/mcL Neutrophils # 12.1 H (1.6-8.9) K/mcL BMP 07/06/19 12:43 Sodium 136 Potassium 4.3 Chloride 103 Carbon Dioxide 25 BUN 28 H Creatinine 0.88 Glucose 123 H Calcium 9.5 Liver Function 07/06/19 Range/Units 12:43 Total Bilirubin 0.6 (0.3-1.0) mg/dL Direct Bilirubin 0.1 (0.0-0.2) mg/dL AST 17 (13-39) Units/L ALT 15 (7-52) Units/L Alkaline Phosphatase 81 (34-104) Units/L Albumin 4.4 (3.5-5.7) g/dL Urine 07/06/19 Range/Units 14:15 Urine Color Yellow (Yellow) Urine Clarity Clear (Clear) Urine pH 6.0 (5.0-8.0) pH Units Ur Specific [place] > 1.030 H (1.010-1.025) Urine Protein Trace (Neg-Trace) mg/dL Urine Glucose (UA) Normal (Normal) mg/dL - Assessment and Plan (1) Abdominal pain Current Visit: Yes Status: Acute Assessment and plan: CT Abdomen and pelvis at the [facility] showed findings suggestive of small bowel obstruction Patient denies nausea or vomiting Patient reporting 2 small bowel movements in the ED today Abdomen is distended and tympanic, without significant tenderness, rebound, or guarding WBC elevated to 16.5 Ddx includes: * Small bowel obstruction * CT findings suggestive of SBO do not match the clinical presentation and history that would be expected * incomplete obstruction possible * Malignant obstruction * History revealed what sounds like a positive hemoccult test at his PCP's office * Recent Dx of "low iron" * Mass palpable in the R flank * Last colonoscopy was well over 10 years ago * Constipation/Fecal impaction * reports small-volume bowel movements recently * Odanah's syndrome * unlikely * Hypothyroidism * Pt with established hypothyroid history * Gastroparesis * unlikely Plan: - Admit to med/surg - NPO - Surgical consult - Consider repeating CT ab/pelv with oral and IV contrast - CBC and CMP, with repeat CBC and BMP QAM - Thyroid panel Qualifiers: Abdominal location: generalized Qualified Code(s): R10.84 - Generalized abdominal pain - Time Spent With Patient Total time spent is greater than 50% in coordination of care (as documented) at patient's floor/unit and/or counseling patient: <Davey Gibson - Last Filed: 07/06/19 17:31> Date of Encounter: 07/06/19 Internal Medicine - H&P: HPI History of present illness: Mr. Burton is a 74 year old male All Systems PM: A 10-system review of systems was performed and is negative for pertinent findings except as documented above in the HPI. - Constitutional Vitals: Temp Pulse Resp BP Pulse Ox 97.5 F L 74 16 166/86 98 07/06/19 15:35 07/06/19 15:35 07/06/19 15:35 07/06/19 15:35 07/06/19 15:35 Internal Med - H&P Results - Labs CBC & Chem 7: 07/06/19 12:43 07/06/19 12:43 Labs: Short CBC 07/06/19 Range/Units 12:43 WBC 16.5 H (4.3-11.1) K/mcL Hgb 13.8 (12.9-16.9) g/dL Hct 43.0 (37.5-50.1) % Plt Count 305 (140-400) K/mcL Neutrophils # 12.1 H (1.6-8.9) K/mcL BMP 07/06/19 12:43 Sodium 136 Potassium 4.3 Chloride 103 Carbon Dioxide 25 BUN 28 H Creatinine 0.88 Glucose 123 H Calcium 9.5 Liver Function 07/06/19 Range/Units 12:43 Total Bilirubin 0.6 (0.3-1.0) mg/dL Direct Bilirubin 0.1 (0.0-0.2) mg/dL AST 17 (13-39) Units/L ALT 15 (7-52) Units/L Alkaline Phosphatase 81 (34-104) Units/L Albumin 4.4 (3.5-5.7) g/dL Urine 07/06/19 Range/Units 14:15 Urine Color Yellow (Yellow) Urine Clarity Clear (Clear) Urine pH 6.0 (5.0-8.0) pH Units Ur Specific [place] > 1.030 H (1.010-1.025) Urine Protein Trace (Neg-Trace) mg/dL Urine Glucose (UA) Normal (Normal) mg/dL - Assessment and Plan (1) Abdominal pain Current Visit: Yes Status: Acute Qualifiers: Abdominal location: generalized Qualified Code(s): R10.84 - Generalized abdominal pain (2) Hypothyroid Current Visit: Yes Status: Chronic Qualifiers: Hypothyroidism type: acquired Qualified Code(s): E03.9 - Hypothyroidism, unspecified (3) Hyperlipidemia Current Visit: Yes Status: Chronic Qualifiers: Hyperlipidemia type: mixed hyperlipidemia Qualified Code(s): E78.2 - Mixed hyperlipidemia - Time Spent With Patient Total time spent is greater than 50% in coordination of care (as documented) at patient's floor/unit and/or counseling patient: - Attending Attestation I examined this patient and my medical decision-making was reviewed with the Resident Physician on 07/06/19. I agree with the documented findings, disposition and treatment plan as described except to the extent set forth below. Mr Burton is 74 y/o male with cholecystectomy in March. Had abdominal pain about a month later and had a fluid collection. Over last few days has noticed intermittent crampy abd pain. Today he had repeat CT showing what appeared to be SBO. He denies nausea or vomiting. Has occasional discomfort in lower abdomen. Also has had iron def anemia working up at [facility]. No fever or chills. Exam Alert. Comfortable. NC. Mucus membranes dry. EOMI. Heart reg. Lungs clear. Abd distended and tympanic with bowel sounds present. Fullness R lower abdomen. No rash. No edema. Moves all extremities. I/P 1. Abd pain - clinically has suggestion of SBO but no nausea or vomiting. Pain control. Surg eval Further diagnoses and plan as above.
[2019-07-06] MEDS ORDERED: Naloxone 0.4 MG/ML INJ IVP PRN (15:41)
[2019-07-06 17:26] LABS: Prothrombin Time 11.6 Seconds (9.4-12.1)
[2019-07-06 17:29] LABS: Activated Partial Thrombo Time 32.3 Seconds (26.0-36.0)
[2019-07-07 06:19] LABS: Basophils # 0.1 K/mcL (0.0-0.2); Basophils % 0.9 %; Eosinophils # 0.2 K/mcL (0.0-0.6); Eosinophils % 2.7 %; Hematocrit 39.2 % (37.5-50.1); Hemoglobin 12.4 g/dL (12.9-16.9); Immature Granulocytes % 0.2 % (0-4); Lymphocytes # 4.3 K/mcL (0.6-4.6); Mean Corpuscular HGB Conc 31.6 g/dL (31.6-35.5); Mean Corpuscular Hemoglobin 28.8 pg (28.0-33.3); Mean Platelet Volume 11.1 fL (9.4-12.4); Monocytes # 0.6 K/mcL (0.0-1.3); Monocytes % 7.4 %; Neutrophils # 3.4 K/mcL (1.6-8.9); Platelet Count 282 K/mcL (140-400); Red Blood Count 4.31 M/mcL (4.19-5.50); Red Cell Distribution Width 14.5 % (11.5-14.5); Segmented Neutrophils % 38.8 %; White Blood Count 8.6 K/mcL (4.3-11.1)
[2019-07-07 06:37] LABS: Alanine Aminotransferase 11 Units/L (7-52); Albumin 3.8 g/dL (3.5-5.7); Albumin/Globulin Ratio 1.8 (1.1-2.2); Alkaline Phosphatase 78 Units/L (34-104); Aspartate Amino Transferase 15 Units/L (13-39); BUN/Creatinine Ratio 25 (6-26); Bilirubin,Total 0.7 mg/dL (0.3-1.0); Blood Urea Nitrogen 21 mg/dL (8-23); Calcium 8.5 mg/dL (8.6-10.3); Carbon Dioxide 25 mEq/L (23-29); Chloride 107 mEq/L (98-107); Globulin 2.1 g/dL (2.4-3.5); Glucose 95 mg/dL (70-105); Osmolality,Calculated 287 (280-300); Potassium 4.2 mEq/L (3.5-5.1); Sodium 137 mEq/L (136-145); Total Protein 5.9 g/dL (6.4-8.9); eGFR For African Americans > 60 (> 60); eGFR For Non-African Americans > 60 (> 60)
--- NOTE | 2019-07-07 06:50 | AcuteCare Surgery Consult Note ---
Date of Encounter: 07/07/19 Time of Encounter: 02:00 Assessment and Plan (1) Small bowel obstruction Current Visit: Yes Status: Acute Resolved. Advance diet. DC to home per primary service. F/U prn History of Present Illness Consult date: 07/07/19 Reason for consult: abdominal pain Requesting physician: Vy Rose History of present illness: This 74 y/omale pt presents to [facility] ED c/o severe abdominal pain. Pt reports pa in is predominantly in infraumbilical area. Pain radiates to BLQ. However, pt also c/o pain in that was in epigastric area . Pt reports pain has been present wince after hi gb removal. He states that the chronic, intermittent low grade pain worsened to the point of intolerence today. The pain became constant and severe. However, he is pain free now. Pt denies nausea and vomiting. Pt denies hematemesis or coffee ground emesis. Pt reports flatus and BM. Pt denies hematochezia or melena. Reports normal appetite. Denies fever. Past Med Surg Social Fam HX - Past Medical History Medical history: arthritis, thyroid disease, other Additional medical history: H/O prostate cancer - 16 years ago Psychiatric history: no psych history - Past Surgical History Surgical History: cholecystectomy Additional surgical history: left knee replacement and rotator cuff repair left shoulder - Social History Smoking Status: Never smoker Smokeless Tobacco Status: No Alcohol use: none Drug use: none - Family History Father Living Status: Age at : 85 Cause of : CHF Hx Family Cardiac Disorders: Yes Mother Living Status: Age at : 70 Cause of : Heart attack Medications and Allergies Aspirin [Lo-Dose Aspirin EC] 1 tab PO DAILY 04/10/19 [History] Diclofenac Sodium [Voltaren] 75 mg PO BID PRN 07/06/19 [History] Gemfibrozil [Lopid] 600 mg PO BIDWM 07/06/19 [History] Levothyroxine [Synthroid] [place] [address]/06/19 [History] Oxybutynin [Ditropan] 5 mg PO BID 07/06/19 [History] Allergy/AdvReac Type Severity Reaction Status Date / Time No Known Allergies Allergy Verified 04/10/19 00:30 Review of Systems All systems PM: The remainder of the systems were reviewed and are negative - Constitutional no anorexia, no chills, no fatigue, no fever(s), no weakness - EENT Nose, mouth and throat: no dry mouth, no dysphagia, no nasal congestion, no nasal discharge, no sinus pain, no sinus pressure, no sore throat - Cardiovascular no chest pain, no diaphoresis, no dyspnea, no edema - Respiratory no cough, no dyspnea, no wheezing - Gastrointestinal abdominal pain, bloating, no cramping, no diarrhea, no nausea, no vomiting - Genitourinary no dysuria, no flank pain, no hematuria, no urinary frequency - Musculoskeletal no back pain, no joint swelling, no limited range of motion, no neck pain - Integumentary no dry skin, no pruritus, no rash, no wounds, no jaundice - Neurological no confusion, no dizziness, no focal weakness, no weakness - Psychiatric no anxiety, no depression - Endocrine no fatigue - Hematologic/Lymphatic no easy bleeding, no easy bruising General Surgery Exam Initial Vital Signs Temp Pulse Resp BP Pulse Ox 97.5 F L 92 16 153/91 98 07/06/19 12:18 07/06/19 12:18 07/06/19 12:18 07/06/19 12:18 07/06/19 12:18 - General physical appearance well developed, well nourished, no distress, no pain - Eyes PERRL, normal ocular movement. negative: icteric - ENT no congestion, dry mucosa. negative: nasal discharge - Neck no masses, trachea midline, no lymphadectomy, no venous distension - Respiratory normal respiratory effort, clear to auscultation - Cardiovascular Cardiovascular exam: Present: RRR. Absent: JVD - Abdomen Abdomen general surgery: Present: bowel sounds present, soft, non tender. Absent: distended - Genitourinary Present: normal penis with no external lesions - Integumentary Integumentary general surgery: Present: warm and dry - Neurologic Present: CN 2-12 grossly intact, normal coordination - Musculoskeletal Present: normal posture - Psychiatric Psychiatric general surgery: Present: A&Ox3, appropriate Exam Initial Vital Signs Temp Pulse Resp BP Pulse Ox 97.5 F L 92 16 153/91 98 07/06/19 12:18 07/06/19 12:18 07/06/19 12:18 07/06/19 12:18 07/06/19 12:18 Results - Labs 07/07/19 06:00 07/07/19 06:00 Abnormal lab results WBC 16.5 K/mcL (4.3-11.1) H 07/06/19 12:43 Hgb 12.4 g/dL (12.9-16.9) L 07/07/19 06:00 RDW 14.6 % (11.5-14.5) H 07/06/19 12:43 Neutrophils # 12.1 K/mcL (1.6-8.9) H 07/06/19 12:43 BUN 28 mg/dL (8-23) H 07/06/19 12:43 BUN/Creatinine Ratio 32 (6-26) H 07/06/19 12:43 Glucose 123 mg/dL (70-105) H 07/06/19 12:43 Calcium 8.5 mg/dL (8.6-10.3) L 07/07/19 06:00 Serum Total Protein 5.9 g/dL (6.4-8.9) L 07/07/19 06:00 Globulin 2.1 g/dL (2.4-3.5) L 07/07/19 06:00 Ur Specific [place] > 1.030 (1.010-1.025) H 07/06/19 14:15 Urine Ketones 40 mg/dL (Negative) H 07/06/19 14:15 Diabetes panel 07/06/19 07/07/19 Range/Units 12:43 06:00 Sodium 136 137 (136-145) mEq/L Potassium 4.3 4.2 (3.5-5.1) mEq/L Chloride 103 107 (98-107) mEq/L Carbon Dioxide 25 25 (23-29) mEq/L BUN 28 H 21 (8-23) mg/dL Creatinine 0.88 0.83 (0.70-1.30) mg/dL Glucose 123 H 95 (70-105) mg/dL Calcium 9.5 8.5 L (8.6-10.3) mg/dL AST 17 15 (13-39) Units/L ALT 15 11 (7-52) Units/L Alkaline Phosphatase 81 78 (34-104) Units/L Albumin 4.4 3.8 (3.5-5.7) g/dL Calcium panel 07/06/19 07/07/19 Range/Units 12:43 06:00 Calcium 9.5 8.5 L (8.6-10.3) mg/dL Albumin 4.4 3.8 (3.5-5.7) g/dL Pituitary panel 07/06/19 07/07/19 Range/Units 12:43 06:00 Sodium 136 137 (136-145) mEq/L Potassium 4.3 4.2 (3.5-5.1) mEq/L Chloride 103 107 (98-107) mEq/L Carbon Dioxide 25 25 (23-29) mEq/L BUN 28 H 21 (8-23) mg/dL Creatinine 0.88 0.83 (0.70-1.30) mg/dL Glucose 123 H 95 (70-105) mg/dL Calcium 9.5 8.5 L (8.6-10.3) mg/dL Adrenal panel 07/06/19 07/07/19 Range/Units 12:43 06:00 Sodium 136 137 (136-145) mEq/L Potassium 4.3 4.2 (3.5-5.1) mEq/L Chloride 103 107 (98-107) mEq/L Carbon Dioxide 25 25 (23-29) mEq/L BUN 28 H 21 (8-23) mg/dL Creatinine 0.88 0.83 (0.70-1.30) mg/dL Glucose 123 H 95 (70-105) mg/dL Calcium 9.5 8.5 L (8.6-10.3) mg/dL Total Bilirubin 0.6 0.7 (0.3-1.0) mg/dL AST 17 15 (13-39) Units/L ALT 15 11 (7-52) Units/L Alkaline Phosphatase 81 78 (34-104) Units/L Albumin 4.4 3.8 (3.5-5.7) g/dL All other labs normal. - Imaging CT scan - abdomen: report reviewed CT scan - pelvis: report reviewed ([place] abd/pelvis CT report suggested possible SBO) Consult Discharge Plan - Plan Referrals: [facility] [Outside]
--- NOTE | 2019-07-07 11:37 | Internal Med Progress Note ---
<Malu Waite - Last Filed: 07/07/19 13:16> Hospitalist Progress Note - Encounter Date of Encounter: 07/07/19 - Exam Vitals: Temp Pulse Resp BP Pulse Ox 97.8 F 63 15 134/80 96 07/07/19 10:47 07/07/19 10:47 07/07/19 10:47 07/07/19 10:47 07/07/19 10:47 - Assessment and Plan (1) Abdominal pain Current Visit: Yes Status: Acute (2) Hypothyroid Current Visit: Yes Status: Chronic (3) Hyperlipidemia Current Visit: Yes Status: Chronic - Time Spent with Patient Total time spent is greater than 50% in coordination of care (as documented) at patient's floor/unit and/or counseling patient: Internal Medicine: Result - Labs CBC & Chem 7: 07/07/19 06:00 07/07/19 06:00 Labs: Short CBC 07/07/19 Range/Units 06:00 WBC 8.6 (4.3-11.1) K/mcL Hgb 12.4 L (12.9-16.9) g/dL Hct 39.2 (37.5-50.1) % Plt Count 282 (140-400) K/mcL Neutrophils # 3.4 (1.6-8.9) K/mcL BMP 07/06/19 07/07/19 12:43 06:00 Sodium 136 137 Potassium 4.3 4.2 Chloride 103 107 Carbon Dioxide 25 25 BUN 28 H 21 Creatinine 0.88 0.83 Glucose 123 H 95 Calcium 9.5 8.5 L Liver Function 07/06/19 07/07/19 Range/Units 12:43 06:00 Total Bilirubin 0.6 0.7 (0.3-1.0) mg/dL Direct Bilirubin 0.1 (0.0-0.2) mg/dL AST 17 15 (13-39) Units/L ALT 15 11 (7-52) Units/L Alkaline Phosphatase 81 78 (34-104) Units/L Albumin 4.4 3.8 (3.5-5.7) g/dL Urine 07/06/19 Range/Units 14:15 Urine Color Yellow (Yellow) Urine Clarity Clear (Clear) Urine pH 6.0 (5.0-8.0) pH Units Ur Specific [place] > 1.030 H (1.010-1.025) Urine Protein Trace (Neg-Trace) mg/dL Urine Glucose (UA) Normal (Normal) mg/dL - ABG Interpretation ABG results: PT/INR, D-dimer PT 11.6 Seconds (9.4-12.1) 07/06/19 16:59 Consult Discharge Plan - Plan Referrals: [facility] [Outside] - Attending Attestation The history, physical exam, and medical decision making was performed by the medical student either while I was physically present and actively involved or I personally re-performed the exam and medical decision making. I have verified the accuracy of the medical student's documentation with regards to the history, physical exam findings, and medical decision making. Mr Burton is admitted with SBO awake, pleasant, abd "sore" but overall pain is resolved, no n/v. gen- alert, awake,appears stated age eyes- pupils equal round , no conjunctival pallor or scleral icterus cv- reg rate and rhythm,no le edema lungs- ctabl, normal resp effort on room air abd- soft, non tender, non distended, faint bs LLQ neuro- AAOx3 SBO, suspect [facility] reviewed -appreciate surg input, we will advance his diet slowly today and monitor -he noted outpt testing + for KAVON and occult stool + and was to schedule outpt cscope- we agree he needs to do this as soon as possible outpt and will rec PCP to follow outpt once out of the acute SBO setting <Marcos Hodges R - Last Filed: 07/07/19 17:18> Hospitalist Progress Note - Encounter Date of Encounter: 07/07/19 Time of Encounter: 11:37 - Subjective Interval History: Pt sitting up in chair beside the bed when I arrived. States that he has had several watery bowel movements throughout the night but no blood that he can see. He still has tenderness to palpation B/L in the lower quadrants but says ov erall he is feeling better. Denies any cp, sob, vision changes, headaches, fevers, chills, vomiting, nausea. - Exam Vitals: Temp Pulse Resp BP Pulse Ox 97.8 F 63 15 134/80 96 07/07/19 10:47 07/07/19 10:47 07/07/19 10:47 07/07/19 10:47 07/07/19 10:47 Exam: Gen: AAOx3, WDWN, pleasant, NAD CVS: RRR, S1, S2, no edema present, no JVD Lungs: CTA B/L, symmetric expansion of chest wall, nonlabored Abdominal: Tenderness in the B/L lower quadrants, healed incision scars from lap choley present, decreased bowel sounds diffusely, there is a palpable mass that is tender to palpation on the right side mid axillary line at the level of umbilicus. No edema or significant distention Extremities: Radial and dorsal pulses present 2+, motor strength 5/5, full ROM, Psych: Understood care plan, answered appropriately, good thought process - Assessment and Plan (1) Small bowel obstruction Current Visit: Yes Status: Resolved Assessment and Plan: Pt presented to the ED 07/06 with worsening abdominal pain that has been intermittent since lap choley performed 03/2019 but is now constant and began that morning after having a small bowel movement & worsens with activity Pt had CT scan done earlier that morning at the [place] which showed findings suggestive of a small bowel obstruction Denies any nausea or vomiting; admits to having 2 small bowel movements in the ED Abdomen was distended and tympanic without any significant tenderness, rebound, or guarding WBC elevated to 16.5--- down to 8.6 on 07/07 Surgery was consulted--appreciate their input Pt reports he has had several loose bowel movements since being admitted to the hospital; denies seeing any blood Surgery has seen pt and has decided not to pursue surgery due to clinical improvement; slowly advance diet and follow up outpatient Pt Reports that PCP recently diagnosed him with "low iron" and gave a stool sample analysis which showed blood in the stool. Last colonoscopy was 10 years ago We strongly suggest that pt follows up with GI in an outpatient setting: he said upon admission that he was in the process of scheduling a colonoscopy Plan on keeping him tonight to see if he can tolerate diet; plan on dc tomorrow 07/08. - Time Spent with Patient Total time spent is greater than 50% in coordination of care (as documented) at patient's floor/unit and/or counseling patient: Internal Medicine: Result - Labs CBC & Chem 7: 07/07/19 06:00 07/07/19 06:00 Labs: Short CBC 07/06/19 07/07/19 Range/Units 12:43 06:00 WBC 16.5 H 8.6 (4.3-11.1) K/mcL Hgb 13.8 12.4 L (12.9-16.9) g/dL Hct 43.0 39.2 (37.5-50.1) % Plt Count 305 282 (140-400) K/mcL Neutrophils # 12.1 H 3.4 (1.6-8.9) K/mcL BMP 07/06/19 07/07/19 12:43 06:00 Sodium 136 137 Potassium 4.3 4.2 Chloride 103 107 Carbon Dioxide 25 25 BUN 28 H 21 Creatinine 0.88 0.83 Glucose 123 H 95 Calcium 9.5 8.5 L Liver Function 07/06/19 07/07/19 Range/Units 12:43 06:00 Total Bilirubin 0.6 0.7 (0.3-1.0) mg/dL Direct Bilirubin 0.1 (0.0-0.2) mg/dL AST 17 15 (13-39) Units/L ALT 15 11 (7-52) Units/L Alkaline Phosphatase 81 78 (34-104) Units/L Albumin 4.4 3.8 (3.5-5.7) g/dL Urine 07/06/19 Range/Units 14:15 Urine Color Yellow (Yellow) Urine Clarity Clear (Clear) Urine pH 6.0 (5.0-8.0) pH Units Ur Specific [place] > 1.030 H (1.010-1.025) Urine Protein Trace (Neg-Trace) mg/dL Urine Glucose (UA) Normal (Normal) mg/dL - ABG Interpretation ABG results: PT/INR, D-dimer PT 11.6 Seconds (9.4-12.1) 07/06/19 16:59 ____ <Malu Waite M - Last Filed: 07/07/19 13:16> (1) Abdominal pain Qualifiers: Abdominal location: generalized Qualified Code(s): R10.84 - Generalized abdominal pain (2) Hypothyroid Qualifiers: Hypothyroidism type: acquired Qualified Code(s): E03.9 - Hypothyroidism, unspecified (3) Hyperlipidemia Qualifiers: Hyperlipidemia type: mixed hyperlipidemia Qualified Code(s): E78.2 - Mixed hyperlipidemia
[2019-07-08 07:29] LABS: BUN/Creatinine Ratio 20 (6-26); Blood Urea Nitrogen 17 mg/dL (8-23); Calcium 8.6 mg/dL (8.6-10.3); Carbon Dioxide 27 mEq/L (23-29); Chloride 104 mEq/L (98-107); Glucose 90 mg/dL (70-105); Osmolality,Calculated 291 (280-300); Potassium 3.7 mEq/L (3.5-5.1); Sodium 140 mEq/L (136-145); eGFR For African Americans > 60 (> 60); eGFR For Non-African Americans > 60 (> 60)
[2019-07-08 07:30] LABS: Basophils # 0.1 K/mcL (0.0-0.2); Basophils % 0.9 %; Eosinophils # 0.2 K/mcL (0.0-0.6); Eosinophils % 2.7 %; Immature Granulocytes % 0.1 % (0-4); Lymphocytes # 3.9 K/mcL (0.6-4.6); Lymphocytes % 48.9 %; Monocytes # 0.6 K/mcL (0.0-1.3); Segmented Neutrophils % 40.4 %
[2019-07-08 07:48] LABS: Hematocrit 36.4 % (37.5-50.1); Hemoglobin 11.9 g/dL (12.9-16.9); Mean Corpuscular HGB Conc 32.7 g/dL (31.6-35.5); Mean Corpuscular Hemoglobin 28.5 pg (28.0-33.3); Mean Corpuscular Volume 87.3 fL (83.0-100.0); Mean Platelet Volume 11.4 fL (9.4-12.4); Neutrophils # 3.2 K/mcL (1.6-8.9); Platelet Count 292 K/mcL (140-400); Red Blood Count 4.17 M/mcL (4.19-5.50); Red Cell Distribution Width 14.4 % (11.5-14.5)
[2019-07-08 07:49] VITALS: BP 154/80
--- NOTE | 2019-07-08 08:02 | Discharge Summary ---
<Malu Waite - Last Filed: 07/08/19 14:20> Orders not resulted at time of discharge: Pending orders 07/06/19 15:41 Urinalysis reflex Microscopic [URIN] Routine Date of Encounter: 07/08/19 - Discharge Diagnosis (1) Abdominal pain Status: Acute Qualifiers: Abdominal location: generalized Qualified Code(s): R10.84 - Generalized abdominal pain (2) Hypothyroid Status: Chronic Qualifiers: Hypothyroidism type: acquired Qualified Code(s): E03.9 - Hypothyroidism, unspecified (3) Hyperlipidemia Status: Chronic Qualifiers: Hyperlipidemia type: mixed hyperlipidemia Qualified Code(s): E78.2 - Mixed hyperlipidemia Hospital course: Mr. Burton is a 74 year old male - Time Spent with Patient Total time spent providing and/or coordinating discharge services: - Discharge Medications Prescriptions: Continued Aspirin [Lo-Dose Aspirin EC] 1 tab PO DAILY Diclofenac Sodium [Voltaren] 75 mg PO BID PRN PRN Reason: Pain Oxybutynin [Ditropan] 5 mg PO BID Levothyroxine [Synthroid] 100 mcg PO 0630 Gemfibrozil [Lopid] 600 mg PO BIDWM Home Medications: Aspirin [Lo-Dose Aspirin EC] 1 tab PO DAILY 04/10/19 [History] Diclofenac Sodium [Voltaren] 75 mg PO BID PRN 07/06/19 [History] Gemfibrozil [Lopid] 600 mg PO BIDWM 07/06/19 [History] Levothyroxine [Synthroid] 100 mcg PO 0630 07/06/19 [History] Oxybutynin [Ditropan] 5 mg PO BID 07/06/19 [History] Allergies/Adverse Reactions: Allergy/AdvReac Type Severity Reaction Status Date / Time No Known Allergies Allergy Verified 04/10/19 00:30 Date of admission: 07/06/19 17:31 [facility] care physician[facility] Consults: 07/06/19 14:08 Consult to Surgery [CONS] Stat Consulting Provider: Acute Care Surgery Reason for Consult: SBO Call Completed: Yes 07/06/19 15:27 Consult to Nutrition [CONS] Routine Comment: Consulting Provider: NUTRITION Reason for Dietary Consult: MST Score - Constitutional Vitals: Temp Pulse Resp BP Pulse Ox 98.7 F 65 14 154/80 97 07/08/19 07:48 07/08/19 07:48 07/08/19 07:48 07/08/19 07:48 07/08/19 07:48 - Patient Status Disposition: Home, Self-Care Condition: Good Overall status at discharge: patient is back to baseline - Discharge Instructions Instructions: Acute Abdominal Pain (DC) Follow Up With: [facility] [Outside] - 07/14/19 10:15 am Additional Instructions: As discussed in the hospital, follow-up with the DC to schedule colonoscopy and for further assessment by general surgery for your intermittent abdominal pain. Please come to the ED if you experience any severe or concerning symptoms, incl uding rectal bleeding, fevers that do not respond to Tylenol, weakness/dizziness/lightheadedness that is persistent, recurrence of severe abdominal pain and bloating, or any other symptoms U find concerning - Diet and Activity Activity: increase activity as tolerated Diet: advance to your usual diet - Attending Attestation I examined this patient and my medical decision-making was reviewed with the Resident Physician Dr Echevarria. I agree with the documented findings, disposition and treatment plan as described except to the extent set forth below. Mr Burton is admitted with SBO that has resolved. He is being discharged to home in stable condition awake, no abd pain, n/v. loose bowel movement last night. tolerated diet yesterday and soft diet this morning. discussed dc plan in detail gen- alert, awake,appears stated age cv- reg rate and rhythm lungs- ctabl, normal resp effort on room air abd- soft, non tender, non distended, bs in all quadrants neuro- AAOx3 SBO, resolved-appreciate surg input, cont to advance to usual diet at home, fu with DC PCP to schedule outpt scopes as he missed appt while here, fu with surgery as needed regarding s/p cholecystectomy (he prefers to begin with his PCP) further dx and plan as noted by resident time spent on dc 40 min <David Echevarria S - Last Filed: 07/08/19 15:31> - NOTES TO OUTPATIENT PROVIDER Notes to Outpatient Provider: Mr. Burton was admitted after CT abd/pelv at the DC showed findings suggestive of SBO. He was admitted with acute abdominal pain, constipation, and bloating. Surgical consult showed no acute need for surgery. Patient will require follow-up at the DC for colonoscopy. He also needs evaluation by a general surgeon, for his continuing intermittent abdominal pain following cholecystectomy in March Orders not resulted at time of discharge: Pending orders 07/06/19 15:41 Urinalysis reflex Microscopic [URIN] Routine Date of Encounter: 07/08/19 Time of Encounter: 09:00 - Discharge Diagnosis (1) Abdominal pain Priority: Primary Status: Acute Assessment and Plan: Abdomen remains mildly tender to palpation in the periumbilical, left lower quadrant, right lower quadrant Palpable mass remains in the right flank area, near the midaxillary line, even after resolution of the patient's constipation Patient is not nauseous now, has not been nauseous at any time * The patient's reported recent diagnosis of "low iron," recent stool sample showing "blood in the stool," and anemia, taken together, Are very concerning for neoplastic process causing transient obstruction. Especially since patient's last colonoscopy was well over 10 years ago * Discussed with patient at bedside that scheduling a colonoscopy should be his priority, as it will get the treatment of both general surgery and his primary care provider Qualifiers: Abdominal location: generalized Qualified Code(s): R10.84 - Generalized abdominal pain Hospital course: Mr. Burton is a 74 year old male who was admitted to our service with abdominal pain and bloating. In March of this year, he suffered a ruptured gallbladder, with subsequent laparoscopic cholecystectomy. Ongoing intermittent abdominal pain prompted an initial CT scan at the DC, which showed fluid around the surgical site. He was scheduled for repeat CAT scan morning of admission, after completing that scan he returned home. He states that as soon as he got home, he was called by the DC and told to go to the nearest emergency room, as the CT scan showed a small bowel obstruction. On his arrival to our ED, he reported 9 out of 10 pain, was resting comfortably in the bed, and was found to have significant bloating which she stated had worsened acutely since passing a small bowel movement the day before. He was not nauseous or vomiting, denied any nausea or vomiting during any point in his illness. The CT scan report from the DC noted oral contrast remaining in the stomach 1.5 hours after administration, semisolid mass in the terminal ileum, dilated loops of small bowel, and collapsed large bowel, consistent with small bowel obstruction of the terminal ileum. Dr. Shen Bustillos of general surgery was consulted, and was in agreement that the patient did not appear to have a small bowel obstruction clinically, and was not a candidate for surgery at this time. She advised continued expectant management. Patient responded well to gentle advancement of diet, continued to have loose bowel movements to date of discharge. Discharge discussed with: patient - Time Spent with Patient Total time spent providing and/or coordinating discharge services: Date of admission: 07/06/19 17:31 [facility] care physician[facility] Consults: 07/06/19 14:08 Consult to Surgery [CONS] Stat Consulting Provider: Acute Care Surgery Reason for Consult: SBO Call Completed: Yes 07/06/19 15:27 Consult to Nutrition [CONS] Routine Comment: Consulting Provider: NUTRITION Reason for Dietary Consult: MST Score Discharging clinician: David Echevarria Anticipated date of discharge: 07/08/19 - Constitutional Vitals: Temp Pulse Resp BP Pulse Ox 98.7 F 65 14 154/80 97 07/08/19 07:48 07/08/19 07:48 07/08/19 07:48 07/08/19 07:48 07/08/19 07:48 Exam: Gen: Awake and alert, no acute distress, well-nourished, well kempt Head: Normocephalic, atraumatic Eyes: EOMI, no scleral icterus ENT: Mucous membranes moist, no oropharyngeal erythema CV: S1-S2 present, regular at a rate of approximately 70, no murmurs rubs or gallops Pulm: CTAB, not tachypneic, no respiratory distress, no increased work of breathing, EXT: Grossly intact motor strength in all 4 extremities, no lower extremity edema, no distal cyanosis or pallor Skin: Warm, dry, intacct, no rashes or lesions noted Neuro: Cranial nerves II-XII grossly intact, no focal neurologic deficits Psych: normal mood and affect, Answers questions with intact judgment, appropriate insight, and linear thought Abd: Abdomen no longer distended and tympanic, remains mildly tender to palpation in the left lower quadrant, right lower quadrant and periumbilically, no rebound tenderness or guarding. *Of Note, there is a palpable, ill-defined mass near the mid-axillary line at the level of the umbilicus that is notably more tender to palpation than the rest of the abdomen, which remains unchanged from initial exam, and remains more tender to palpation than the remainder of the abdomen
== END 2019-07-08 11:04 | disposition home or self-care (01) | DRG 389 ==
LOC: EMEROOARM 12:16 → 3ANU 12:16 → SUATTDRO 14:30 → 3ANU 15:00 → SUATTDRO 17:31
PROVIDERS: ADMIT Internal Medicine; ATTEND Internal Medicine